=== PATIENT | female | born 1970 | race Caucasian/White ===

== ENCOUNTER 2018-01-12 17:13 | Emergency (ER) | payer BC ==
--- NOTE | 2018-01-12 17:31 | EDM.PDOC ---
<Melanie Olivas M - Last Filed: 01/12/18 17:48> ED HPI GENERAL MEDICAL PROBLEM - General Chief Complaint: Laceration Stated Complaint: RIGHT FOREARM LAC Time Seen by Provider: 01/12/18 17:31 Source of Information: Reports: Patient History Limitations: Reports: No Limitations - History of Present Illness INITIAL COMMENTS - FREE TEXT/NARRATIVE: Enma is a pleasant 47yo female here after getting kicked in the right forearm by a calf just prior to arrival. States kicked pretty hard and forearm is sore. She has full ROM to FA and fingers. Otherwise healthy. Last Tetanus was a few years ago, <5 years ago. 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: - Past Surgical History HEENT Surgical History: Reports: Tonsillectomy GI Surgical History: Reports: Appendectomy Female Surgical History: Reports: Section Social & Family History - Tobacco Use Smoking Status *Q: Former Smoker Used Tobacco, but Quit: No - Caffeine Use Caffeine Use: Reports: None - Recreational Drug Use Recreational Drug Use: No ED ROS GENERAL - Review of Systems Review Of Systems: See Below Constitutional: Reports: No Symptoms HEENT: Reports: No Symptoms Respiratory: Reports: No Symptoms Cardiovascular: Reports: No Symptoms GI/Abdominal: Reports: No Symptoms Skin: Reports: Other (see HPI, was bleeding but controlled and no bleeding now) ED EXAM, SKIN/RASH Exam: See Below Exam Limited By: No Limitations General Appearance: Alert, WD/WN, No Apparent Distress Eye Exam: Bilateral Eye: EOMI, PERRL Ears: Normal External Exam Nose: Normal Inspection Throat/Mouth: Normal Inspection, Normal Voice, No Airway Compromise Head: Atraumatic, Normocephalic Neck: Normal Inspection Respiratory/Chest: No Respiratory Distress, No Accessory Muscle Use Cardiovascular: Normal Peripheral Pulses Peripheral Pulses: 2+: Radial (L), Radial (R) Skin: Other (laceration to medial mid foearm, approximately 2cm in length.) ED SKIN PROCEDURES - Laceration/Wound Repair Right Middle Medial Arm Lac/Wound length In cm: 2 Appearance: Superficial, Subcutaneous Distal NVT: Neuro & Vascular Intact, No Tendon Injury Anesthetic Type: Local Local Anesthesia - Lidocaine (Xylocaine): 1% with EPI Local Anesthetic Volume: 4cc Skin Prep: Chlorhexidine (Hibiciens) Exploration/Debridement/Repair: Wound Explored, In a Bloodless Field, Explored to Base, No Foreign Material Found Closed with: Sutures Suture Size: 4-0 Suture Type: Nylon Sterile Dressing Applied: Nurse Tetanus Status Addressed: Yes Complications: No Course - Vital Signs Last Recorded V/S: Last Vital Signs Temp 98.1 F 01/12/18 17:20 Pulse 105 H 01/12/18 17:20 Resp 13 01/12/18 17:20 BP 119/89 01/12/18 17:20 Pulse Ox 98 01/12/18 17:20 - Orders/Labs/Meds Orders: Active Orders 24 hr Category Date Time Status Forearm 2V Rt [CR] Stat Exams 01/12/18 17:31 Stop Req Patient later declines xray so orders were cancelled. Meds: Medications Discontinued Medications Generic Name Dose Route Start Last Admin Trade Name Josue PRN Reason Stop Dose Admin Lidocaine/Epinephrine 20 ml 01/12/18 17:32 01/12/18 17:40 Xylocaine 1% With Epinephrine 1:100,000 INJECT 01/12/18 17:33 20 ml ONETIME ONE Administration Departure - Departure Disposition: Home, Self-Care 01 Condition: Good Clinical Impression: Laceration of forearm Qualifiers: Encounter type: initial encounter Laterality: right Qualified Code(s): S51.811A - Laceration without foreign body of right forearm, initial encounter - Discharge Information Prescriptions: Cephalexin 500 mg PO Q6HR #20 capsule Instructions: Laceration Care, Adult, [id number] Referrals: PCP,None [Primary Care Provider] - Forms: ED Department Discharge Additional Instructions: Laceration care instructions, Sutures to be removed in 12 days Keep wound clean and dry, however may shower as usual, do not soak in a tub Monitor for signs of infection, return to ER or clinic if those signs develop Tylenol or motrin if needed for pain, cephalexin antibiotic 500 mg 4 times daily until gone Return to ER if needed for other questions or concerns. <Darnell Morales - Last Filed: 01/12/18 18:31> ED SKIN PROCEDURES - Laceration/Wound Repair Right Middle Arm Lac/Wound length In cm: 2.5 Appearance: Irregular, Other (Curved shaped flap) Distal NVT: Neuro & Vascular Intact Anesthetic Type: Local Local Anesthesia - Lidocaine (Xylocaine): 1% Plain Skin Prep: Saline Suture Size: 3-0 # of Sutures: 7 Suture Type: Nylon Course - Re-Assessments/Exams Free Text/Narrative Re-Assessment/Exam: 01/12/18 18:29 assumed care from Heidi Serrano. I agree with her hx and exam as documented. I did the repair. I also evaluated patient. Departure - Departure Time of Disposition: 18:05
[2018-01-12] MEDS ORDERED: Lidocaine 1% with EPINEPHrine 1:100,000 20 ML MDV INJECT ONE (17:32)
== END 2018-01-12 18:16 | disposition home or self-care (01) ==
LOC: JD.ED 17:13
DX: S51.811A Laceration without foreign body of right forearm, initial encounter (principal); Z88.0 Allergy status to penicillin; Z88.8 Allergy status to other drugs, medicaments and biological substances; Z87.891 Personal history of nicotine dependence; W22.8XXA Striking against or struck by other objects, initial encounter
CPT/HCPCS: 12001; 99283-25

== ENCOUNTER 2019-09-18 14:39 | Emergency (ER) | payer BC ==
--- NOTE | 2019-09-18 16:17 | EDM.PDOC ---
ED HPI GENERAL MEDICAL PROBLEM - General Chief Complaint: Chest Pain Stated Complaint: CHEST DISCOMFORT Time Seen by Provider: 09/18/19 15:01 Source of Information: Reports: Patient History Limitations: Reports: No Limitations - History of Present Illness INITIAL COMMENTS - FREE TEXT/NARRATIVE: The patient presents with chest pain. This has been going on since yesterday. The pain has been coming and going and today it was more constant today. It is an achy pain. It radiates to her back at times. She has no shortness of breath with it. She has no fever, chills, cough, congestion, runny nose, abdominal pain, nausea or vomiting. She has no swelling or pain in her legs. She has no history of heart disease, hypertension, or hypercholesterolemia. She does not smoke. Onset: Gradual Duration: Day(s): Location: Reports: Chest Quality: Reports: Ache Severity: Mild Improves with: Reports: None Worsens with: Reports: None Associated Symptoms: Reports: Chest Pain. Denies: Cough, Fever/Chills, Headaches, Nausea/Vomiting, Shortness of Breath Anterior Chest Pain Score (Numeric/FACES): 2 - Related Data Allergies Allergy/AdvReac Type Severity Reaction Status Date / Time penicillin G Allergy Rash Verified 01/12/18 17:24 prochlorperazine Allergy Facial Verified 01/12/18 17:24 [From Compazine] Spasms Home Meds: Home Meds . 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: Hematologic History: Reports: Idiopathic Thrombocytopenia - Past Surgical History HEENT Surgical History: Reports: Tonsillectomy GI Surgical History: Reports: Appendectomy Female Surgical History: Reports: Section Social & Family History - Tobacco Use Smoking Status *Q: Never Smoker - Caffeine Use Caffeine Use: Reports: Coffee - Recreational Drug Use Recreational Drug Use: No ED ROS GENERAL - Review of Systems Review Of Systems: See Below Constitutional: Reports: No Symptoms HEENT: Reports: No Symptoms Respiratory: Reports: No Symptoms Cardiovascular: Reports: No Symptoms Endocrine: Reports: No Symptoms GI/Abdominal: Reports: No Symptoms : Reports: No Symptoms Musculoskeletal: Reports: No Symptoms ED EXAM, GENERAL - Physical Exam Exam: See Below Exam Limited By: No Limitations General Appearance: Alert, No Apparent Distress Ears: Normal External Exam Nose: Normal Inspection Head: Atraumatic, Normocephalic Neck: Normal Inspection Respiratory/Chest: No Respiratory Distress, Lungs Clear, Normal Breath Sounds Cardiovascular: Regular Rate, Rhythm, No Edema, No Murmur GI/Abdominal: Soft, Non-Tender, No Organomegaly, No Mass Back Exam: Normal Inspection Extremities: Normal Inspection EKG INTERPRETATION EKG Date: 09/18/19 Time: 15:55 Rhythm: NSR Rate (Beats/Min): 80 [place]: Normal P-Wave: Present QRS: Normal ST-T: Normal QT: Normal EKG Interpretation Comments: Q waves in the anterior leads Course - Vital Signs Last Recorded V/S: Last Vital Signs Temp 99.2 F 09/18/19 14:55 Pulse 87 09/18/19 14:55 Resp 16 09/18/19 14:55 BP 113/76 09/18/19 14:55 Pulse Ox - Orders/Labs/Meds Orders: Active Orders 24 hr Category Date Time Status Cardiac Monitoring [RC] . DIRECTED Care 09/18/19 15:06 Active EKG Documentation Completion [RC] ASDIRECTED Care 09/18/19 14:59 Active Chest 2V [CR] Stat Exams 09/18/19 15:07 Taken EKG 12 Lead [EK] Stat Ther 09/18/19 14:59 Ordered Labs: Laboratory Tests 09/18/19 09/18/19 09/18/19 Range/Units 15:20 15:20 15:20 WBC 6.39 (3.98-10.04) K/mm3 RBC 4.79 (3.98-5.22) M/mm3 Hgb 14.4 (11.2-15.7) gm/dl Hct 42.8 (34.1-44.9) % MCV 89.4 (79.4-94.8) fl MCH 30.1 (25.6-32.2) pg MCHC 33.6 (32.2-35.5) g/dl RDW Std Deviation 40.3 (36.4-46.3) fL Plt Count 128 L (182-369) K/mm3 MPV 9.9 (9.4-12.3) fl Neut % (Auto) 65.7 (34.0-71.1) % Lymph % (Auto) 26.6 (19.3-51.7) % [place] % (Auto) 6.4 (4.7-12.5) % Eos % (Auto) 0.8 (0.7-5.8) Baso % (Auto) 0.3 (0.1-1.2) % Neut # (Auto) 4.20 (1.56-6.13) K/mm3 Lymph # (Auto) 1.70 (1.18-3.74) K/mm3 [place] # (Auto) 0.41 H (0.24-0.36) K/mm3 Eos # (Auto) 0.05 (0.04-0.36) K/mm3 Baso # (Auto) 0.02 (0.01-0.08) K/mm3 D-Dimer, Quantitative 0.41 (0.19-0.50) mg/L Sodium 140 (136-145) mEq/L Potassium 3.7 (3.5-5.1) mEq/L Chloride 104 (98-107) mEq/L Carbon Dioxide 23 (21-32) mEq/L Anion Gap 16.7 H (5-15) BUN 18 (7-18) mg/dL Creatinine 0.9 (0.55-1.02) mg/dL Est Cr Clr Drug Dosing 77.11 mL/min Estimated GFR (MDRD) > 60 (>60) mL/min BUN/Creatinine Ratio 20.0 H (14-18) Glucose 108 H (74-106) mg/dL Calcium 9.0 (8.5-10.1) mg/dL Total Bilirubin 0.5 (0.2-1.0) mg/dL AST 17 (15-37) U/L ALT 40 (14-59) U/L Alkaline Phosphatase 70 (46-116) U/L Troponin I < 0.017 (0.00-0.056) ng/mL Total Protein 7.9 (6.4-8.2) g/dl Albumin 4.2 (3.4-5.0) g/dl Globulin 3.7 gm/dL Albumin/Globulin Ratio 1.1 (1-2) - Re-Assessments/Exams Free Text/Narrative Re-Assessment/Exam: 09/18/19 16:27 I ordered an EKG, CXR and labs. Her EKG shows a NSR with no acute changes. Her CXR looks good. Her CBC and CMP look good. Her troponin and D-dimer were negative. I will discharge her home. Departure - Departure Time of Disposition: 16:30 Disposition: Home, Self-Care 01 Condition: Good Clinical Impression: Atypical chest pain Referrals: Deninse Mclaughlin NP [Primary Care Provider] - Forms: ED Department Discharge Additional Instructions: Take motrin, aleve or aspirin for pain. Please return if you are worse. Sepsis Event Note - Evaluation Sepsis Screening Result: No Definite Risk - Focused Exam Vital Signs: Vital Signs Temp Pulse Resp BP 09/18/19 14:55 99.2 F 87 16 113/76 Date Exam was Performed: 09/18/19 Time Exam was Performed: 16:24 - My Orders Last 24 Hours: My Active Orders 09/18/19 14:59 EKG Documentation Completion [RC] ASDIRECTED EKG 12 Lead [EK] Stat 09/18/19 15:06 Cardiac Monitoring [RC] . DIRECTED 09/18/19 15:07 Chest 2V [CR] Stat - Assessment/Plan Last 24 Hours: My Active Orders 09/18/19 14:59 EKG Documentation Completion [RC] ASDIRECTED EKG 12 Lead [EK] Stat 09/18/19 15:06 Cardiac Monitoring [RC] . DIRECTED 09/18/19 15:07 Chest 2V [CR] Stat
--- NOTE | 2019-09-19 08:47 | CR ---
Chest: Two views of the chest were obtained. Comparison: No prior chest imaging. Heart size and mediastinum are normal. Lungs are clear. Slight disc space narrowing is scatted throughout the spine. Impression: 1. Nothing acute is appreciated on two-view chest x-ray. Diagnostic code #1 This report was dictated in [place] Standard Time
== END 2019-09-18 16:35 | disposition home or self-care (01) ==
LOC: JD.ED 14:39
DX: R07.89 Other chest pain (principal); Z88.0 Allergy status to penicillin; Z88.6 Allergy status to analgesic agent
CPT/HCPCS: 36415; 71046; 71046-26; 80053; 84484; 85025; 85379; 93005; 93010; 99283; 99285-25